=== PATIENT | male | born 1975 | race Two or more races ===

== ENCOUNTER → 2022-07-12 | Outpatient (CLI) | payer OTHER, BC ==
--- NOTE | 2022-07-12 13:58 | XR ---
EXAMINATION TYPE: XR abdomen 2V DATE OF EXAM: 07/12/2022 CLINICAL DATA: 46-year-old male R109, [facility] COMPARISON: None FINDINGS: Lung bases are clear. No evidence for free intraperitoneal air. Minimal stool within the right side of the colon. Otherwise, only minimal bowel gas present. Possible hepatomegaly. Ultrasound can be considered if clinically indicated. No dilated small bowel or air-fluid levels. Phleboliths in the pelvis. No suspicious calcifications seen. IMPRESSION: 1. No evidence for free air or bowel obstruction. Only minimal stool in the right side of the colon. 2. Possible hepatomegaly. If clinically indicated, liver ultrasound can be performed.
[2022-07-12 14:23] LABS: Basophils # (A) 0.09 X 10*3/uL (0.00-0.10); Basophils % (A) 0.8 %; Eosinophils # (A) 0.39 X 10*3/uL (0.04-0.35); Eosinophils % (A) 3.3 %; HCT 49.7 % (39.6-50.0); HGB 16.4 g/dL (13.0-17.0); Immature Grans, Automated 0.5 %; Lymphocytes % (A) 17.9 %; MCH 29.2 pg (27.0-32.0); MCV 88.6 fL (80.0-97.0); Mean Platelet Volume 11.2 fL (9.5-12.2); Monocytes # (A) 0.82 X 10*3/uL (0.20-1.00); NRBC Per 100 WBC 0 /100 WBCS (0.0-0.0); Neutrophils # (A) 8.26 X 10*3/uL (1.80-7.70); Neutrophils % (A) 70.5 %; Platelet Count 218 X 10*3/uL (140-440); RBC 5.61 X 10*6/uL (4.40-5.60); RDW 12.5 % (11.5-14.5); WBC 11.72 X 10*3/uL (4.50-10.00)
[2022-07-12 14:50] LABS: African American GFR (CKD) 87.3 (60.0-200.0); Albumin 4.3 g/dL (3.8-4.9); Albumin/Globulin Ratio 2.07 (1.60-3.17); Anion Gap 10.1 mmol/L (10.00-18.00); BUN/Creat Ratio 9.04 Ratio (12.00-20.00); Blood Urea Nitrogen 10.4 mg/dL (9.0-27.0); Calcium 9.4 mg/dL (8.7-10.3); Carbon Dioxide 29.2 mmol/L (20.0-27.5); Globulin 2.1 g/dL (1.6-3.3); Non-African American GFR(CKD) 75.4 (60.0-200.0); Potassium 4.5 mmol/L (3.5-5.5); Total Bilirubin 0.4 mg/dL (0.30-1.20); Total Protein 6.4 g/dL (6.2-8.2)
== END | disposition home or self-care (01) ==
LOC: LABWHC1 10:29
PROVIDERS: ATTEND Physician Assistant
DX: R10.9 Unspecified abdominal pain (principal)
CPT/HCPCS: 36415; 74019; 80053; 82150; 83690; 85025

== ENCOUNTER → 2022-07-13 | Outpatient (CLI) | payer OTHER, BC ==
--- NOTE | 2022-07-13 11:46 | US ---
EXAMINATION TYPE: US abdomen complete DATE OF EXAM: 07/13/2022 COMPARISON: NONE CLINICAL HISTORY: R10.9 ABDOMEN PAIN. TECHNIQUE: Multiple sonographic images of the abdomen are obtained. FINDINGS: EXAM MEASUREMENTS: Liver Length: 18.1 cm Gallbladder Wall: 0.11 cm CBD: 0.19 cm Spleen: 11.8 cm Right Kidney: 10.5 x 4.8 x 5.9 cm Left Kidney: 11.7 x 5.7 x 5.5 cm Pancreas: Tail obscured by overlying bowel gas Liver: Increased attenuation. Enlarged right lobe vs Reidel's variant. Gallbladder: wnl Evidence for sonographic Rossi's sign: No CBD: wnl Spleen: wnl Right Kidney: wnl Left Kidney: wnl Upper IVC: wnl Abd Aorta: wnl The liver is homogenous. The intrahepatic portion of the IVC and proximal abdominal aorta are within normal limits. There is no evidence of cholelithiasis. Common bile duct is unremarkable. The visu alized portions of the pancreas are homogenous. The spleen is unremarkable. Kidneys are symmetric a nd free of hydronephrosis. No renal lesions are seen. IMPRESSION: Probable Leesa's lobe.
== END | disposition home or self-care (01) ==
LOC: RADUSWWP 10:51
PROVIDERS: ATTEND Family Medicine
DX: R10.9 Unspecified abdominal pain (principal)
CPT/HCPCS: 76700

== ENCOUNTER → 2022-09-25 | Outpatient (CLI) | payer OTHER, BC ==
--- NOTE | 2022-09-25 10:56 | FL ---
EXAMINATION TYPE: FL UGI air w small bowel DATE OF EXAM: 09/25/2022 10:20 AM COMPARISON: NONE CLINICAL HISTORY: HX OF DIARRHEA AND CONSTIPATION RT SIDE ABDOMINAL PAIN A total of 80 seconds of fluoroscopic time was utilized during procedure and 22 images obtained. Preliminary view of the abdomen reveals a normal bowel gas pattern. Mild degenerative changes are not ed of the thoracolumbar spine. Upper GI examination was performed according to the air contrast techn ique. Barium and effervescent crystal was swallowed without difficulty or delay. Esophageal perista lsis and motility are within normal limits. There is no evidence for esophagitis, intraluminal mass, hiatal hernia or gastroesophageal reflux. The stomach has a normal appearance in terms of its size, shape and location. No gastric filling defects or ulcer craters are seen. The duodenal bulb and sw eep are also free of intraluminal lesion or ulcer crater. IMPRESSION: Unremarkable evaluation.
[2022-09-25 13:03] LABS: Appearance,Urine Clear (Clear); Bilirubin,Urine Negative (Negative); Blood,Urine Negative (Negative); Color,Urine Yellow; Glucose,Urine (UA) Negative (Negative); Ketones,Urine Negative (Negative); Leukocyte Esterase,Urine Negative (Negative); Nitrite,Urine Negative (Negative); Protein,Urine Trace (Negative); Specific Gravity,Urine 1.028 (1.001-1.035); Urobilinogen,Urine <2.0 mg/dL (<2.0)
== END | disposition home or self-care (01) ==
LOC: RADFLMAIN 08:45
PROVIDERS: ATTEND Family Medicine
DX: Z00.00 Encounter for general adult medical examination without abnormal findings (principal); R10.9 Unspecified abdominal pain; E66.3 Overweight; F52.21 Male erectile disorder
CPT/HCPCS: 74240; 74248; 81003; 82040; 82306; 83036; 84153; 84270; 84403; 84443

== ENCOUNTER → 2022-10-11 | Outpatient (CLI) | payer OTHER, BC ==
--- NOTE | 2022-10-11 15:53 | NM ---
EXAMINATION TYPE: NM hepatobiliary w EF DATE OF EXAM: 10/11/2022 COMPARISON: Ultrasound 07/13/2022 CLINICAL INDICATION: Male, 46 years old with history of R10.9 abdominal pain; TECHNIQUE: After the intravenous administration of 4.3 mCi Tc 99m Mebrofenin hepatobiliary scintigrap hy is performed. Immediate images post injection. FINDINGS: There is satisfactory initial accumulation of tracer by the liver. The gallbladder is visualized wit hin 6 minutes. The small bowel activity is noted within 8 minutes. At one hour 8 ounces of oral ens ure plus is given to mimic CCK and gallbladder ejection fraction is calculated at 68 %, in the normal range. Therefore there is no scintigraphic evidence of cystic or common bile duct obstruction to feng ggest acute cholecystitis or gallbladder dyskinesia. IMPRESSION: Exam is within normal limits.
== END | disposition home or self-care (01) ==
LOC: RADNMMAIN 06:48
PROVIDERS: ATTEND Family Medicine
DX: R10.9 Unspecified abdominal pain (principal)
CPT/HCPCS: 78226; A9537

== ENCOUNTER 2023-06-19 06:07 | Inpatient (IN) | payer OTHER, BC ==
--- NOTE | 2023-06-19 06:18 | ED ---
Chest Pain HPI - General Source: patient Mode of arrival: ambulatory Limitations: no limitations <Carlos Alberto Irvin - Last Filed: 06/19/23 06:16> - General Source: RN notes reviewed, old records reviewed <Jose Bowie - Last Filed: 06/19/23 06:30> - General Chief Complaint: Chest Pain Stated Complaint: chest pain Time Seen by Provider: 06/19/23 06:15 - History of Present Illness Initial Comments: 47-year-old male with past medical history of asthma presenting with central chest pain radiating to bilateral arms associated diaphoresis. Patient symptoms began just prior to arrival. has no prior cardiac history. (Jose Bowie) - Related Data Home Medications Medication Instructions Recorded Confirmed No Known Home Medications 02/24/14 02/24/14 Allergies Allergy/AdvReac Type Severity Reaction Status Date / Time No Known Allergies Allergy Verified 02/24/14 22:12 Review of Systems ROS Other: All systems not noted in ROS Statement are negative. <Carlos Alberto Irvin - Last Filed: 06/19/23 06:16> ROS Other: All systems not noted in ROS Statement are negative. <Jose Bowie - Last Filed: 06/19/23 06:30> ROS Statement: Those systems with pertinent positive or pertinent negative responses have been documented in the HPI. Past Medical History Past Medical History: Asthma History of Any Multi-Drug Resistant Organisms: None Reported Past Surgical History: No Surgical Hx Reported Past Psychological History: No Psychological Hx Reported Smoking Status: Current every day smoker Past Alcohol Use History: None Reported Past Drug Use History: None Reported <Carlos Alberto Irvin - Last Filed: 06/19/23 06:16> General Exam Limitations: no limitations <Carlos Alberto Irvin - Last Filed: 06/19/23 06:16> General appearance: alert, in no apparent distress Head exam: Present: atraumatic, normocephalic Eye exam: Present: normal appearance, PERRL Neck exam: Present: normal inspection. Absent: tenderness, meningismus Respiratory exam: Present: normal lung sounds bilaterally. Absent: respiratory distress Cardiovascular Exam: Present: regular rate, normal rhythm GI/Abdominal exam: Present: soft. Absent: distended, tenderness, guarding Extremities exam: Present: normal inspection, normal capillary refill Neurological exam: Present: alert Skin exam: Present: diaphoretic <Jose Bowie N - Last Filed: 06/19/23 06:30> Course Vital Signs 06/19/23 06:11 Temperature 97.7 F Pulse Rate 48 L Respiratory 18 Rate Blood Pressure 123/82 O2 Sat by Pulse 98 Oximetry Chest Pain MDM <Jose Bowie - Last Filed: 06/19/23 06:30> - MDM Was pt. sent in by a medical professional or institution (, PA, BANK TELLER MACHINE MECHANIC, urgent care, hospital, or custodial...) When possible be specific @ -No Did you speak to anyone other than the patient for history (EMS, parent, family, police, friend...)? What history was obtained from this source @ -No Did you review nursing and triage notes (agree or disagree)? Why? @ -I reviewed and agree with nursing and triage notes Were old charts reviewed (outside hosp., previous admission, EMS record, old EKG, old radiological studies, urgent care reports/EKG's, custodial records)? Report findings @ -No old charts were reviewed Differential Diagnosis (chest pain, altered mental status, abdominal pain women, abdominal pain men, vaginal bleeding, weakness, fever, dyspnea, syncope, headache, dizziness, GI bleed, back pain, seizure, CVA, palpatations, mental health, musculoskeletal)? @Differential Chest Pain: Stable Angina, Unstable Angina, STEMI, NSTEMI Aortic Dissection, Pneumothorax, Musculoskeletal, Esophageal Spasm GERD, Cholecystitis, Pancreatitis, Zoster, this is not meant to be an all-inclusive list. EKG interpreted by me (3pts min.). @ -ST segment elevated OR, inferior OR rate of 51, NE interval 143, QRS duration 109, QTc 390, inferior elevation with reciprocal change in aVL. X-rays interpreted by me (1pt min.). @ -[Chest x-ray pending. CT interpreted by me (1pt min.). @ -None done U/S interpreted by me (1pt. min.). @ -None done What testing was considered but not performed or refused? (CT, X-rays, U/S, labs)? Why? @ -None What meds were considered but not given or refused? Why? @ -None Did you discuss the management of the patient with other professionals (professionals i.e. , PA, BANK TELLER MACHINE MECHANIC, lab, RT, psych nurse, social insurance adviser, sheet metal smith, teacher, staff weapons officer, showcase trimmer)? Give summary @ -Dr. Guzman, Dr. Bourgeois Was smokiNong cessation discussed for >3mins.? @ -No Was critical care preformed (if so, how long)? @ -yes, 35 minutes Were there social determinants of health that impacted care today? How? (Homelessness, low income, unemployed, alcoholism, drug addiction, transportation, low edu. Level, literacy, decrease access to med. care, prison, rehab)? @ -No Was there de-escalation of care discussed even if they declined (Discuss DNR or withdrawal of care, Hospice)? DNR status @ -No What co-morbidities impacted this encounter? (DM, HTN, Smoking, COPD, CAD, Cancer, CVA, ARF, Chemo, Hep., AIDS, mental health diagnosis, sleep apnea, morbid obesity)? @ -None Was patient admitted / discharged? Hospital course, mention meds given and route, prescriptions, significant lab abnormalities, going to OR and other pertinent info. @ -[Acute OR, patient admitted, taken immediately to the [facility], given aspirin, Lipitor, and heparin in the emergency department. Undiagnosed new problem with uncertain prognosis? @ -No Drug Therapy requiring intensive monitoring for toxicity (Heparin, Nitro, Insulin, Cardizem)? @ -No Were any procedures done? @ -No Diagnosis/symptom? @ -Acute OR, ST segment elevated OR Acute, or Chronic, or Acute on Chronic? @ -[Acute Uncomplicated (without systemic symptoms) or Complicated (systemic symptoms)? @ -Complicated Side effects of treatment? @ -[No Exacerbation, Progression, or Severe Exacerbation? @ -No Poses a threat to life or bodily function? How? (Chest pain, USA, OR, pneumonia, PE, COPD, DKA, ARF, appy, cholecystitis, CVA, Diverticulitis, Homicidal, Suicidal, threat to staff... and all critical care pts) @ -Yes, STEMI (Jose Bowie) Critical Care Time Critical Care Time: Yes Total Critical Care Time: 35 <Jose Bowie - Last Filed: 06/19/23 06:30> Disposition <Carlos Alberto Irvin - Last Filed: 06/19/23 06:16> Is patient prescribed a controlled substance at d/c from ED?: No Time of Disposition: 06:30 <Jose Bowie - Last Filed: 06/19/23 06:30> Clinical Impression: ST elevation myocardial infarction (STEMI) Disposition: ADMITTED IP TO THIS HOSP Condition: Serious Referrals: Rubin Blanco DO [Primary Care Provider] - 1-2 days
[2023-06-19] MEDS ORDERED: NALOXONE 0.4 MG/ML 1 ML VIAL IV PRN (06:25)
[2023-06-19] MEDS: ASPIRIN 81 MG PO STA (06:25)
[2023-06-19] MEDS: HEPARIN SODIUM 1,000 UN/ML (10ML VL) IV ONE ×2 (06:26→06:50)
[2023-06-19] MEDS: ATORVASTATIN 80 MG TAB PO STA (06:29)
[2023-06-19] MEDS ORDERED: VERAPAMIL 2.5 MG/ML 2 ML AMP ONE (06:32)
[2023-06-19] MEDS ORDERED: LIDOCAINE 1% INJ 10MG/ML (20 ML MDV) ONE (06:32)
[2023-06-19] MEDS ORDERED: fentaNYL (PF) 50 MCG/ML 2 ML AMP ONE (06:41)
[2023-06-19] MEDS ORDERED: HEPARIN SODIUM 1,000 UN/ML (10ML VL) ONE (06:41)
[2023-06-19] MEDS: fentaNYL (PF) 50 MCG/1 ML VIAL IVP ONE (06:42)
[2023-06-19] MEDS: SODIUM CHLORIDE 0.9% 1,000 ML IV ONE (06:42)
[2023-06-19 06:46] LABS: Basophils # (A) 0.1 k/uL (0-0.2); Basophils % (A) 1 %; Eosinophils # (A) 0.5 k/uL (0-0.7); Eosinophils % (A) 5 %; HCT 48.7 % (39.0-53.0); HGB 16.6 gm/dL (13.0-17.5); Lymphocytes % (A) 28 %; MCH 29.6 pg (25.0-35.0); MCHC 34.2 g/dL (31.0-37.0); MCV 86.7 fL (80.0-100.0); Mean Platelet Volume 8.3; Monocytes # (A) 0.6 k/uL (0-1.0); Monocytes % (A) 6 %; Neutrophils # (A) 6.3 k/uL (1.3-7.7); Neutrophils % (A) 59 %; Platelet Count 223 k/uL (150-450); RBC 5.62 m/uL (4.30-5.90); RDW 12.4 % (11.5-15.5); WBC 10.7 k/uL (3.8-10.6)
[2023-06-19] MEDS: LIDOCAINE 1% INJ 10MG/ML (20 ML MDV) SQ ONE (06:46)
[2023-06-19] MEDS: VERAPAMIL SYRINGE (5 MG/10 ML) INTRAARTER ONE (06:49)
[2023-06-19] MEDS ORDERED: PRASUGREL 10 MG TAB ONE (06:50)
[2023-06-19] MEDS: PRASUGREL 10 MG TAB PO ONE (06:52)
[2023-06-19 06:54] LABS: ALT 31 U/L (4-49); AST 35 U/L (17-59); African American GFR (CKD) >90 (>60 ml/min/1.73 sqM); Albumin 3.9 g/dL (3.5-5.0); Alkaline Phosphatase 68 U/L (38-126); Anion Gap 7 mmol/L; Blood Urea Nitrogen 15 mg/dL (9-20); Calcium 8.8 mg/dL (8.4-10.2); Carbon Dioxide 25 mmol/L (22-30); Chloride 106 mmol/L (98-107); Glucose 190 mg/dL (74-99); Magnesium 1.9 mg/dL (1.6-2.3); Non-African American GFR(CKD) 80 (>60 ml/min/1.73 sqM); Partial Thromboplastin Time 22.1 sec (22.0-30.0); Potassium 4.3 mmol/L (3.5-5.1); Prothrombin Time 10.7 sec (10.0-12.5); Sodium 138 mmol/L (137-145); Total Bilirubin 0.8 mg/dL (0.2-1.3); Total Protein 6.6 g/dL (6.3-8.2)
[2023-06-19] MEDS ORDERED: METOPROLOL TARTRATE 5 MG/5 ML VIAL IVP ONE (07:01)
[2023-06-19] MEDS: METOPROLOL TARTRATE 5 MG/5 ML VIAL IVP ONE (07:04)
[2023-06-19] MEDS: IOPAMIDOL-370 100ML BTL INJ ONE ×3 (07:06→07:36)
--- NOTE | 2023-06-19 07:08 | P.HPCAR ---
History of Present Illness This is Dr. Guzman dictating a consult on this patient The patient was interviewed and examined IMPRESSION / ASSESSMENT: Acute inferior wall ME ST elevation in leads II, III, aVF and involving 4 to V6, ST depression in lead I and particularly in aVL History of asthma PLAN: Urgent coronary angiogram and intervention for acute inferior wall ME HPI Patient presented with central chest discomfort radiating to both arms associate with diaphoresis The pain began shortly before arrival No prior cardiac history No home medications Seen by Dr. Burns who then proceeded with coronary angiography transferred to ROS: No fever chills or rigors, no cough, phlegm or expectoration, no nausea, vomiting or diarrhea, no hematuria, dysuria, no musculoskeletal complaints, no strokes or seizures, no skin lesions. EXAMINATION: Pulse rate in the 50s, blood pressure 123/82 afebrile REVIEW OF LABS, ECG & MEDICAL DATA No known Home medications White count 10.7 thousand, hemoglobin 16 Potassium 4.3, sodium 138 Normal renal function, elevated glucose of 190 AST and ALT normal Physical Exam Vitals: Vital Signs Temp Pulse Resp BP Pulse Ox 06/19/23 06:47 98.5 F 56 L 18 130/97 98 06/19/23 06:41 98.2 F 56 L 18 130/97 98 06/19/23 06:11 97.7 F 48 L 18 123/82 98 Intake and Output 06/18/23 06/19/23 06/19/23 22:59 06:59 14:59 Other: Weight 111.13 kg Past Medical History Past Medical History: Asthma History of Any Multi-Drug Resistant Organisms: None Reported Past Surgical History: No Surgical Hx Reported Past Psychological History: No Psychological Hx Reported Smoking Status: Current every day smoker Past Alcohol Use History: None Reported Past Drug Use History: None Reported Physical Examination Vital Signs Temp Pulse Resp BP Pulse Ox 06/19/23 06:47 98.5 F 56 L 18 130/97 98 06/19/23 06:41 98.2 F 56 L 18 130/97 98 06/19/23 06:11 97.7 F 48 L 18 123/82 98 Intake and Output 06/18/23 06/19/23 06/19/23 22:59 06:59 14:59 Other: Weight 111.13 kg Results 06/19/23 06:26 06/19/23 06:26 Cardiac Enzymes 06/19/23 Range/Units 06:26 AST 35 (17-59) U/L Coagulation 06/19/23 Range/Units 06:26 PT 10.7 (10.0-12.5) sec APTT 22.1 (22.0-30.0) sec CBC 06/19/23 Range/Units 06:26 WBC 10.7 H (3.8-10.6) k/uL RBC 5.62 (4.30-5.90) m/uL Hgb 16.6 (13.0-17.5) gm/dL Hct 48.7 (39.0-53.0) % Plt Count 223 (150-450) k/uL Comprehensive Metabolic Panel 06/19/23 Range/Units 06:26 Sodium 138 (137-145) mmol/L Potassium 4.3 (3.5-5.1) mmol/L Chloride 106 (98-107) mmol/L Carbon Dioxide 25 (22-30) mmol/L BUN 15 (9-20) mg/dL Creatinine 1.09 (0.66-1.25) mg/dL Glucose 190 H (74-99) mg/dL Calcium 8.8 (8.4-10.2) mg/dL AST 35 (17-59) U/L ALT 31 (4-49) U/L Alkaline Phosphatase 68 (38-126) U/L Total Protein 6.6 (6.3-8.2) g/dL Albumin 3.9 (3.5-5.0) g/dL Current Medications Generic Name Dose Route Start Last Admin Trade Name Freq PRN Reason Stop Dose Admin Naloxone HCl 0.2 mg 06/19/23 06:25 Naloxone 0.4 Mg/Ml 1 Ml Vial IV Q2M PRN Opioid Reversal Intake and Output 06/18/23 06/19/23 06/19/23 22:59 06:59 14:59 Other: Weight 111.13 kg 06/19/23 06:26 06/19/23 06:26
[2023-06-19] MEDS ORDERED: NITROGLYCERIN SL TABS 0.4 MG TAB SUBLINGUAL PRN (07:50)
[2023-06-19] MEDS ORDERED: ATROPINE SULFATE 0.1 MG/ML 10ML SYRINGE IV PRN (07:50)
[2023-06-19] MEDS ORDERED: RX INFO: IV CONTRAST WAS GIVEN 1 EACH MISC MISCELLANE PRN (07:50)
[2023-06-19] MEDS ORDERED: MAG HYDROX/AL HYDROX/SIMETH 30 ML CUP PO PRN (07:50)
[2023-06-19] MEDS ORDERED: ZOLPIDEM 5 MG TAB PO PRN (07:50)
--- NOTE | 2023-06-19 07:56 | XR ---
EXAMINATION TYPE: XR chest 1V portable DATE OF EXAM: 06/19/2023 COMPARISON: 03/03/2012 INDICATION: Chest pain TECHNIQUE: Single frontal view of the chest is obtained. FINDINGS: The heart size is normal. The pulmonary vasculature is normal. The lungs are clear. IMPRESSION: 1. No acute pulmonary process.
--- NOTE | 2023-06-19 07:56 | P.CRDCN ---
History of Present Illness Consult date: 06/19/23 History of present illness: History of Present Illness: The patient is a 47-year-old male with a known history of chronic tobacco use, bronchial asthma who presented to the emergency room with an acute episode of chest discomfort without any associated symptoms. He had no prior history of similar symptoms and no history of cardiac disease. He denies any history of P ND, orthopnea or peripheral edema. He denies any dizziness, palpitations or syncope. In the emergency room he was found to have ST elevation inferiorly consistent with an acute inferior wall myocardial infarction. His troponin was 0.48. The patient is relatively active physically and has no history of exertional chest discomfort or significant dyspnea on exertion. He has no history of hypertension, hyperlipidemia or diabetes. Medications: None Review of Systems: Respiratory: No history of asthma, bronchitis or recent cough. GI: No nausea or vomiting . No history of peptic ulcer disease. No recent GI bleed. : No hematuria or dysuria. Nervous System: No stroke or seizure. Physical Examination: 47-year-old male, alert oriented no apparent distress,Blood pressure 120/70, Heart rate 60 Head: Normocephalic. Eyes: Sclerae nonicteric. Neck: Good carotid upstroke, no bruit, no jugular venous distention. Lungs: Clear to auscultation. Heart: Regular rate and rhythm, S1-S2, no S3, no rub. No murmur. Abdomen: Soft nontender, positive bowel sounds no organomegaly. Extremities: No edema, intact distal pulses. Labs: Hemoglobin 16.6, platelets 223, BUN 15, creatinine 1.09. EKG: EKG with sinus mechanism and ST segment elevation inferiorly Impression: 1. Acute inferior wall STEMI 2. Chronic tobacco use Plan: 1. Proceed with emergent cardiac catheterization, the risks and the comp lications were discussed with the patient 2. Smoking cessation 3. Obtain an echocardiogram with Doppler 4. Depending on the results of the testing further recommendations will be made 5. Thank you for this consult we will follow with you Past Medical History Past Medical History: Asthma History of Any Multi-Drug Resistant Organisms: None Reported Past Surgical History: No Surgical Hx Reported Past Psychological History: No Psychological Hx Reported Smoking Status: Current every day smoker Past Alcohol Use History: None Reported Past Drug Use History: None Reported Medications and Allergies Home Medications Medication Instructions Recorded Confirmed Type No Known Home Medications 02/24/14 02/24/14 History Allergies Allergy/AdvReac Type Severity Reaction Status Date / Time No Known Allergies Allergy Verified 02/24/14 22:12 Physical Exam Vitals: Vital Signs Temp Pulse Resp BP Pulse Ox 06/19/23 06:47 98.5 F 56 L 18 130/97 98 06/19/23 06:41 98.2 F 56 L 18 130/97 98 06/19/23 06:11 97.7 F 48 L 18 123/82 98 Intake and Output 06/18/23 06/19/23 06/19/23 22:59 06:59 14:59 Intake Total 50 Balance 50 Intake: IV 50 Other: Weight 111.13 kg Results 06/19/23 06:26 06/19/23 06:26 Cardiac Enzymes 06/19/23 06/19/23 Range/Units 06:26 06:26 AST 35 (17-59) U/L Troponin I 0.048 H* (0.000-0.034) ng/mL Coagulation 06/19/23 Range/Units 06:26 PT 10.7 (10.0-12.5) sec APTT 22.1 (22.0-30.0) sec CBC 06/19/23 Range/Units 06:26 WBC 10.7 H (3.8-10.6) k/uL RBC 5.62 (4.30-5.90) m/uL Hgb 16.6 (13.0-17.5) gm/dL Hct 48.7 (39.0-53.0) % Plt Count 223 (150-450) k/uL Comprehensive Metabolic Panel 06/19/23 Range/Units 06:26 Sodium 138 (137-145) mmol/L Potassium 4.3 (3.5-5.1) mmol/L Chloride 106 (98-107) mmol/L Carbon Dioxide 25 (22-30) mmol/L BUN 15 (9-20) mg/dL Creatinine 1.09 (0.66-1.25) mg/dL Glucose 190 H (74-99) mg/dL Calcium 8.8 (8.4-10.2) mg/dL AST 35 (17-59) U/L ALT 31 (4-49) U/L Alkaline Phosphatase 68 (38-126) U/L Total Protein 6.6 (6.3-8.2) g/dL Albumin 3.9 (3.5-5.0) g/dL Current Medications Generic Name Dose Route Start Last Admin Trade Name Freq PRN Reason Stop Dose Admin Al Hydroxide/Mg Hydroxide 30 ml 06/19/23 07:50 Mag Hydrox/Al Hydrox/Simeth 30 Ml Cup PO Q4HR PRN Heartburn Aspirin 81 mg 06/19/23 09:00 Aspirin 81 Mg PO DAILY [facility] Atorvastatin Calcium 80 mg 06/19/23 21:00 Atorvastatin 80 Mg Tab PO HS [facility] Atropine Sulfate 0.5 mg 06/19/23 07:50 Atropine Sulfate 0.1 Mg/Ml 10ml Syringe IV ONCE PRN Symptomatic Bradycardia Sodium Chloride 1,000 ml/ IV 1,000 mls @ 111.13 mls/hr 06/19/23 08:00 Solution IV 06/19/23 11:01 .Q9H GORGE 1 ML/KG/HR Metoprolol Tartrate 25 mg 06/19/23 09:00 Metoprolol Tartrate 25 Mg Tab PO BID [facility] Miscellaneous Information 1 each 06/19/23 07:50 Rx Info: Iv Contrast Was Given 1 Each Misc MISCELLANE 06/21/23 07:50 DAILY PRN Per Protocol Naloxone HCl 0.2 mg 06/19/23 06:25 Naloxone 0.4 Mg/Ml 1 Ml Vial IV Q2M PRN Opioid Reversal Nitroglycerin 0.4 mg 06/19/23 07:50 Nitroglycerin Sl Tabs 0.4 Mg Tab SUBLINGUAL Q5M PRN Chest Pain Prasugrel 10 mg 06/20/23 09:00 Prasugrel 10 Mg Tab PO DAILY [facility] Protocol Spironolactone 25 mg 06/19/23 09:00 Spironolactone 25 Mg Tab PO DAILY [facility] Zolpidem Tartrate 5 mg 06/19/23 07:50 Zolpidem 5 Mg Tab PO HS PRN Insomnia Intake and Output 06/18/23 06/19/23 06/19/23 22:59 06:59 14:59 Intake Total 50 Balance 50 Intake: IV 50 Other: Weight 111.13 kg 06/19/23 06:26 06/19/23 06:26
[2023-06-19 08:00] LABS: Glucose,Whole Blood 161 mg/dL (70-110)
[2023-06-19] MEDS: SODIUM CHLORIDE 0.9% 1,000 ML in EMPTY BAG 1 BAG IV SCH (08:00)
--- NOTE | 2023-06-19 08:02 | P.CARDCATH ---
Date of Procedure: 06/19/23 Description of Procedure: Cardiac Catheterization: The patient is a 47-year-old male who presented with an acute inferior wall myocardial infarction. Recommendations were made regarding cardiac catheterization, the risks and the complications were discussed with the patient who is in full understanding and agreement. Procedure Description: Patient was brought to dock or pier laborer in fasting semi-sedated state after receiving Fentanyl and Benadryl achieiving moderate conscious sedated state. Using Xylocaine Anesthesia and modified Seldinger technique, a 6-Malian sheath was introduced in the right radial artery . Subsequently, selective coronary angiography was performed using a 6 Malian FFR 4 guiding catheter and 5-Malian 3.5 bend left Jannet catheter. Multiple views of the coronary artery including hemiaxial views were obtained. The left Jannet catheter was used to cross the aortic valve and LVEDP was calculated. PCI: After obtaining images of the right coronary artery a 0.014 BMW J-wire was positioned distally and a 2.5 x 12 mm trek balloon was advanced and 2 inflation at 8 flaco were done. Subsequently a penumbra catheter was introduced and thrombectomy was performed with removal of thrombus. After removing the catheter a listedplaces eye IVUS catheter was introduced and images were obt ained. Subsequently a 3.5 x 18 mm Xience qasim point stent was advanced and deployed at 16 flaco. Subsequently a 4.5 x 8 mm NC trek balloon was advanced to the distal RCA and 1 inflation at 10 flaco was done. Repeat IVUS was performed and after removing the catheter a 5.0 x 8 mm NC trek balloon was advanced to the distal RCA and 1 inflation at 8 flaco was done. After removing the wire images were obtained and revealed stable successful stenting. Images of the left system were performed and repeat images of the right coronary artery was performed. Following that, catheter and sheath were removed. Hemostasis was obtained with deployment of vascular band . There was no immediate complication. Patient was returned to room in stable condition. Of note, the patient received a total of 5000 units of intravenous heparin as well as intra-arterial verapamil. The patient received an oral loading dose of Effient, his ACT was followed. At the end of the procedure his chest discomfort resolved and his EKG changes improved. There was no immediate complications. Findings: Left main: This is a large size vessel, bifurcating into LAD and left circumflex, left main has no obstructive disease. LAD: This is a large size vessel, reaching to the apex with a wraparound apex segment giving rise to a large diagonal branch. The LAD and its branches have no obstructive disease Left circumflex: This is a non-dominant vessel giving rise to 2 obtuse marginal branch that have no evidence of obstructive disease RCA: This is a large size vessel bifurcating distally to PDA and PLV at the distal segment there is 99% stenosis with evidence of intra coronary thrombus and slow flow into the PLV Left Ventriculogram: Not performed Hemodynamics: There was no gradient across aortic valve, LVEDP was 25-30 mmHg Conclusion: 1. 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 No evidence of obstructive disease in the LAD and left circumflex 3. Successful stenting of the distal right coronary artery and proximal PLV with reduction of stenosis from 99% to less than 5% with IVUS imaging 4. Elevated left ventricular end-diastolic pressure Recommendations: The patient will continue on aspirin and Effient without any interruption for 1 year without any interruption in addition to aggressive coronary risks modifications, maintaining LDL to less then 50 mg/dL and smoking cessation. The findings and the recommendations were discussed with the patient and the family and they were in full understanding and agreement. Duration of sedation is 54 minutes.
[2023-06-19] MEDS: SPIRONOLACTONE 25 MG TAB PO SCH (09:30)
[2023-06-19 10:30] VITALS: BMI 31.4
[2023-06-19] MEDS ORDERED: ONDANSETRON 4 MG/2 ML VIAL IVP PRN (11:27)
[2023-06-19] MEDS ORDERED: LACTULOSE 20 GM/30 ML CUP PO PRN (11:27)
[2023-06-19] MEDS ORDERED: MELATONIN 3 MG TABLET PO PRN (11:27)
[2023-06-19] MEDS ORDERED: LORazepam 0.5 MG TAB PO PRN (11:27)
[2023-06-19] MEDS: METOPROLOL TARTRATE 25 MG TAB PO SCH (11:35)
[2023-06-19] MEDS: NICOTINE 21MG/24HR PATCH TRANSDERM SCH (11:35)
[2023-06-19] MEDS: ACETAMINOPHEN TAB 325 MG TAB PO PRN (11:40)
[2023-06-19] MEDS ORDERED: DEXTROSE 50% SYRINGE 50 ML IVP PRN ×2 (14:24)
--- NOTE | 2023-06-19 14:25 | P.HPIM ---
History of Present Illness H&P Date: 06/19/23 Chief Complaint: Chest pain This is a pleasant 47-year-old patient who follows Dr. Blanco. Longstanding smoker. Has asthma with rescue inhaler. This morning he woke up feeling unwell. 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 Started developing central chest pressure going to the back. No dizziness no lightheadedness. Break out in a sweat and clammy. Decided come to the ER. Time elapsed was about 90 minutes. ER patient found to be in ST elevation acute myocardial infarction. Taken to the cardiac Associate Research Scientist. Patient was discovered to have a subtotally occluded dis rhianna RCA with intracoronary thrombus. Stenting of the same was carried out. Postprocedure patient laying in bed in the ICU. Patient's and mother at the bedside. 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 Smoking a pack a day for close to 30 years. Alcohol occasionally. . Physical examination: VITAL SIGNS: Afebrile, 65, 18, 124/90, 97% room air GENERAL: BMI 31.1, reclining bed awake not in distress. EYES: Pupils equal. Conjunctiva shabnam l. HEENT: External appearance of nose and ears normal, oral cavity grossly normal. NECK: JVD not raised; masses not palpable. HEART: First and second heart sounds are normal; no edema. LUNGS: Respiratory rate normal; clear to auscultation. ABDOMEN: Soft, nontender, liver spleen not palpable, no masses palpable. PSYCH: Alert and oriented x3; mood and affect shabnam l. MUSCULOSKELETAL:No Clubbing/cyanosis;muscles-grossly intact NEUROLOGICAL: Cranial nerves grossly intact; no facial asymmetry, power and sensation grossly intact. LYMPHATICS: No lymph nodes palpable in the axilla and neck INVESTIGATIONS, reviewed in the clinical context: June 19: White count 10.7 hemoglobin 16.6 platelets 223 potassium 4.3 c reatinine 1.09 Troponin I 0.048 EKG tracing personally reviewed by me-ST elevation in inferior leads and reciprocal changes in the opposite leads Assessment and plan: -Acute inferior wall ST elevation [place] Patient has stent placed to the RCA., By Dr. Burns Aspirin. Lipitor. Lopressor. Effient. -Chronic nicotine dependence, cigarette smoking Counseled. Nicotine patch -Obesity BMI 31.5 Weight loss measures -COPD and a current smoker Albuterol as needed insulin -Hyperglycemia. Check HbA1c. Accu-Cheks with sliding scale insulin Care was discussed with the patient his mother and at the bedside. Questions answered. Past Medical History Past Medical History: Asthma History of Any Multi-Drug Resistant Organisms: None Reported Past Surgical History: No Surgical Hx Reported Smoking Status: Current every day smoker Medications and Allergies Home Medications Medication Instructions Recorded Confirmed Type No Known Home Medications 02/24/14 06/19/23 History Allergies Allergy/AdvReac Type Severity Reaction Status Date / Time No Known Allergies Allergy Verified 06/19/23 08:33 Physical Exam Vitals: Vital Signs Temp Pulse Resp BP Pulse Ox 06/19/23 08:15 67 17 138/90 96 06/19/23 08:00 97.7 F 63 16 138/96 98 06/19/23 06:47 98.5 F 56 L 18 130/97 98 06/19/23 06:41 98.2 F 56 L 18 130/97 98 06/19/23 06:11 97.7 F 48 L 18 123/82 98 Intake and Output 06/18/23 06/19/23 06/19/23 22:59 06:59 14:59 Intake Total 50 211 Balance 50 211 Intake: IV 50 Intake, IV Titration 111 Amount Sodium Chloride 0.9% 1, 111 000 ml In Empty Bag 1 bag @ 1 ML/KG/HR 111.13 mls/ hr IV .Q9H [facility] Rx#: [id number] Oral 100 Other: Weight 111.13 kg 111.13 kg Results CBC & Chem 7: 06/19/23 06:26 06/19/23 06:26 Labs: Abnormal Lab Results - Last 24 Hours (Table) 06/19/23 06/19/23 06/19/23 Range/Units 06:26 06:26 06:26 WBC 10.7 H (3.8-10.6) k/uL Glucose 190 H (74-99) mg/dL POC Glucose (mg/dL) (70-110) mg/dL Troponin I 0.048 H* (0.000-0.034) ng/mL 06/19/23 Range/Units 07:57 WBC (3.8-10.6) k/uL Glucose (74-99) mg/dL POC Glucose (mg/dL) 161 H (70-110) mg/dL Troponin I (0.000-0.034) ng/mL
[2023-06-19] MEDS: INSULIN ASPART (NovoLOG) 100 UNIT/ML VIAL SQ SCH (14:59)
[2023-06-19 15:56] LABS: Chol/HDL Ratio 6.05 Ratio; LDL Cholesterol,Calculated 106.5 mg/dL (0.0-131.0)
[2023-06-19 16:33] LABS: Glucose,Whole Blood 156 mg/dL (70-110)
--- NOTE | 2023-06-19 17:02 | CA ---
Transthoracic Echo Report Name: Russell Zuniga Age: 47 Gender: M : 1975 Exam Date: 06/19/2023 09:36 Exam Location: [facility] Ht (in): 74 Wt (lb): 245 Ordering Physician: Van Burns MD ([id number]) Attending/Referring Phys: Compressor Station Engineer Chief Dania Fenton RDCS Procedure CPT: Indications: MS Cardiac Hx: Technical Quality: Good Contrast 1: Total Dose (mL): Contrast 2: Total Dose (mL): MEASUREMENTS (Male / Female) Normal Values 2D ECHO LV Diastolic Diameter PLAX 5.3 cm 4.2 - 5.9 / 3.9 - 5.3 cm LV Systolic Diameter PLAX 4.0 cm IVS Diastolic Thickness 1.1 cm 0.6 - 1.0 / 0.6 - 0.9 cm LVPW Diastolic Thickness 1.1 cm 0.6 - 1.0 / 0.6 - 0.9 cm LV Relative Wall Thickness 0.4 RV Internal Dim ED PLAX 3.5 cm LA Systolic Diameter LX 4.0 cm 3.0 - 4.0 / 2.7 - 3.8 cm LV Diastolic Volume MOD 4C 155.0 cm??? LV Systolic Volume MOD 4C 72.1 cm??? LV Ejection Fraction MOD 4C 53.5 % LV Cardiac Index MOD 4C 2110.0 cm???/min???m??? LV Diastolic Length 4C 8.9 cm LV Systolic Length 4C 7.0 cm LV Diastolic Volume MOD 2C 123.1 cm??? LV Systolic Volume MOD 2C 56.2 cm??? LV Ejection Fraction MOD 2C 54.4 % LV Cardiac Index MOD 2C 1704.7 cm???/min???m??? LV Diastolic Length 2C 8.9 cm LV Systolic Length 2C 7.1 cm LA Volume 58.9 cm??? 18 - 58 / 22 - 52 cm??? LA Volume Index 24.2 cm???/m??? 16 - 28 cm???/m??? M-MODE Aortic Root Diameter MM 3.6 cm MV E Point Septal Separation 0.3 cm AV Cusp Separation MM 2.5 cm DOPPLER AV Peak Velocity 123.2 cm/s AV Peak Gradient 6.1 mmHg MV Area PHT 3.7 cm??? Mitral E Point Velocity 82.3 cm/s Mitral A Point Velocity 56.3 cm/s Mitral E to A Ratio 1.5 MV Deceleration Time 206.6 ms TR Peak Velocity 247.2 cm/s TR Peak Gradient 24.4 mmHg Right Ventricular Systolic Press 28.9 mmHg FINDINGS Left Ventricle Left ventricular ejection fraction is estimated at 50-55 %. Left ventricular cavity size normal. Left ventricular wall thickness normal. Basel inferior hypokinesis Right Ventricle Mild right ventricular dilatation. Right ventricular systolic pressure within normal limits. Right Atrium Normal right atrial size. Left Atrium Normal left atrial size. Mitral Valve Structurally normal mitral valve. Trace mitral regurgitation. Aortic Valve Trileaflet aortic valve. No aortic valve stenosis or regurgitation. Tricuspid Valve Structurally normal tricuspid valve. Mild tricuspid regurgitation. Pulmonic Valve Structurally normal pulmonic valve. No pulmonic regurgitation. Pericardium No pericardial effusion. Aorta Normal size aortic root and proximal ascending aorta. CONCLUSIONS Normal LV systolic function Hypokinetic basal inferior wall Previewed by: Dr. Joseluis Mirza MD (Electronically Signed) Final Date: 19 June 2023 17:01
[2023-06-19] MEDS: ATORVASTATIN 80 MG TAB PO SCH (20:24)
[2023-06-20 05:33] LABS: African American GFR (CKD) >90 (>60 ml/min/1.73 sqM); Anion Gap 6 mmol/L; Blood Urea Nitrogen 7 mg/dL (9-20); Calcium 8.8 mg/dL (8.4-10.2); Carbon Dioxide 25 mmol/L (22-30); Chloride 107 mmol/L (98-107); Glucose 130 mg/dL (74-99); Non-African American GFR(CKD) >90 (>60 ml/min/1.73 sqM); Potassium 4.3 mmol/L (3.5-5.1); Sodium 138 mmol/L (137-145)
[2023-06-20 06:24] LABS: Glucose,Whole Blood 141 mg/dL (70-110)
--- NOTE | 2023-06-20 07:11 | P.PN ---
Subjective Progress Note Date: 06/20/23 Principal diagnosis: Acute coronary syndrome The patient is a 47-year-old gentleman who was admitted to the hospital with acute inferior ST deviation myocardial infarction and underwent an emergent heart catheterization and stenting of the RCA. The echo showed a preserved LV systolic function. June 20, 2023 The patient was seen and evaluated this morning. He is asymptomatic. He is hemodynamically stable. Vitals are stable. He continues to be on dual antiplatelet therapy along with high intensity statin along with anti-ischemic medication. As I mentioned earlier the echo showed preserved LV systolic function with no arrhythmia was noted overnight. The right radial site is soft and nontender with excellent pulses. From a cardiovascular standpoint of view, the patient can be transferred to [facility]. The examination overall showed regular rhythm with clear breathing sounds bilaterally no edema was noted. Assessment Acute inferior ST deviation myocardial infarction Preserved LV systolic function Hypertension Dyslipidemia Plan Continue current medical regimen Continue dual antiplatelet therapy along with high intensity statin Consider cardiac rehabilitation as an outpatient Follow-up with the patient The patient can be transferred to the floor Objective - Vital Signs Vital signs: Vital Signs Temp 97.8 F 06/20/23 04:00 Pulse 62 06/20/23 07:00 Resp 19 06/20/23 07:00 BP 137/82 06/20/23 07:00 Pulse Ox 95 06/20/23 07:00 FiO2 Intake & Output 06/19/23 06/20/23 06/20/23 18:59 06:59 18:59 Intake Total 844 Output Total 850 2200 0 Balance -6 -2200 0 Weight 111.13 kg 113.5 kg Intake: Intake, IV Titration 444 Amount Sodium Chloride 0.9% 1, 444 000 ml In Empty Bag 1 bag @ 1 ML/KG/HR 111.13 mls/ hr IV .Q9H [facility] Rx#: [id number] Oral 400 Output: Urine 850 2200 0 Other: Voiding Method Urinal Urinal # Voids 2 - Labs CBC & Chem 7: 06/19/23 06:26 06/20/23 04:24 Labs: Abnormal Lab Results - Last 24 Hours (Table) 06/19/23 06/19/23 06/19/23 Range/Units 06:26 06:26 07:57 BUN (9-20) mg/dL Glucose (74-99) mg/dL POC Glucose (mg/dL) 161 H (70-110) mg/dL Troponin I 0.048 H* (0.000-0.034) ng/mL Triglycerides 223.00 H (0.00-149.00) mg/dL VLDL Cholesterol, Calc 44.60 H (5.00-40.00) mg/dL HDL Cholesterol 29.90 L (40.00-60.00) mg/dL 06/19/23 06/20/23 06/20/23 Range/Units 16:31 04:24 06:23 BUN 7 L (9-20) mg/dL Glucose 130 H (74-99) mg/dL POC Glucose (mg/dL) 156 H 141 H (70-110) mg/dL Troponin I (0.000-0.034) ng/mL Triglycerides (0.00-149.00) mg/dL VLDL Cholesterol, Calc (5.00-40.00) mg/dL HDL Cholesterol (40.00-60.00) mg/dL
[2023-06-20] MEDS: ASPIRIN 81 MG PO SCH (08:12)
[2023-06-20] MEDS: PRASUGREL 10 MG TAB PO SCH (08:13)
[2023-06-20 08:20] VITALS: TEMP 98.1
[2023-06-20 11:05] LABS: Glucose,Whole Blood 104 mg/dL (70-110)
--- NOTE | 2023-06-20 13:59 | P.PN ---
Progress Note - Text Progress Note Date: 06/20/23 Chief Complaint: Chest pain This is a pleasant 47-year-old patient who follows Dr. Blanco. Longstanding smoker. Has asthma with rescue inhaler. This morning he woke up feeling unwell. 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 Started developing central chest pressure going to the back. No dizziness no lightheadedness. Break out in a sweat and clammy. Decided come to the ER. Time elapsed was about 90 minutes. ER patient found to be in ST elevation acute myocardial infarction. Taken to the cardiac Rug Designer. Patient was discovered to have a subtotally occluded distal RCA with intracoronary thrombus. Stenting of the same was carried out. Postprocedure patient laying in bed in the ICU. Patient's and mother at the bedside. May: Up in a recliner. Has been up to the bathroom. No chest pain or shortness of breath. Did tolerate a diet. 2D echo shows preserved LV function. Told to increase activity. Patient's fasting glucose this morning was 130. And HbA1c came back at 6.3. Will start the patient on metformin given his BMI 32.1. 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 Smoking a pack a day for close to 30 years. Alcohol occasionally. . Physical examination: VITAL SIGNS: 98.1, 74, 18, 137 x 93, 96% on 2 L GENERAL: In a recliner. EYES: Pupils equal. Conjunctiva shabnam l. HEENT: External appearance of nose and ears normal, oral cavity grossly normal. NECK: JVD not raised; masses not palpable. HEART: First and second heart sounds are normal; no edema. LUNGS: Respiratory rate normal; clear to auscultation. ABDOMEN: Soft, nontender, liver spleen not palpable, no masses palpable. PSYCH: Alert and oriented x3; mood and affect shabnam l. MUSCULOSKELETAL:No Clubbing/cyanosis;muscles-grossly intact INVESTIGATIONS, reviewed in the clinical context: May: Potassium 4.3 creatinine 0.87 HbA1c 6.3 June 19: White count 10.7 hemoglobin 16.6 platelets 223 potassium 4.3 creatinine 1.09 Troponin I 0.048 EKG tracing personally reviewed by me-ST elevation in inferior leads and reciprocal changes in the opposite leads Assessment and plan: -Acute inferior wall ST elevation [place] Stent placed to the RCA., By Dr. Burns Aspirin. Lipitor. Lopressor. Effient. -Chronic nicotine dependence, cigarette smoking Counseled. Nicotine patch -Diabetes mellitus type 2, borderline Fasting blood glucose 130. HbA1c 6.3. Start metformin 5 mg twice daily. Diabetic diet. Sliding scale insulin -Obesity BMI 31.5 Weight loss measures -COPD and a current smoker Albuterol as needed insulin Discussed with patient. Increase activity. Past Medical History Past Medical History: Asthma History of Any Multi-Drug Resistant Organisms: None Reported Past Surgical History: No Surgical Hx Reported Smoking Status: Current every day smoker
[2023-06-20 16:05] LABS: Glucose,Whole Blood 102 mg/dL (70-110)
[2023-06-21 05:48] LABS: Glucose,Whole Blood 132 mg/dL (70-110)
[2023-06-21] MEDS: metFORMIN 500 MG TAB PO SCH (05:52)
[2023-06-21 10:15] VITALS: RESP 18
[2023-06-21 11:23] LABS: Glucose,Whole Blood 104 mg/dL (70-110)
[2023-06-21 11:35] VITALS: BP 109/72; PULSE 71
--- NOTE | 2023-06-21 11:55 | P.PN ---
Subjective Progress Note Date: 06/21/23 Principal diagnosis: Acute coronary syndrome The patient is a 47-year-old gentleman who was admitted to the hospital with acute inferior ST deviation myocardial infarction and underwent an emergent heart catheterization and stenting of the RCA. The echo showed a preserved LV systolic function. June 20, 2023 The patient was seen and evaluated this morning. He is asymptomatic. He is hemodynamically stable. Vitals are stable. He continues to be on dual antiplatelet therapy along with high intensity statin along with anti-ischemic medication. As I mentioned earlier the echo showed preserved LV systolic function with no arrhythmia was noted overnight. The right radial site is soft and nontender with excellent pulses. From a cardiovascular standpoint of view, the patient can be transferred to [facility]. The examination overall showed regular rhythm with clear breathing sounds bilaterally no edema was noted. 06/20 Patient has been transferred out of the intensive care unit seen today on the cardiac stepdown unit. He denies have any chest pain, no shortness of breath no lightheadedness or dizziness. He has been ambulatory without symptoms. Blood pressure 109/72, heart rate 71, pulse ox 95% on room air. Assessment Acute inferior ST deviation myocardial infarction Preserved LV systolic function Hypertension Dyslipidemia Plan Continue current medical regimen Continue dual antiplatelet therapy along with high intensity statin Patient is cleared from cardiology for discharge. New prescriptions have been sent to his pharmacy. Patient follow-up with Dr. Burns in 1 week Nurse practitioner note has been reviewed, I agree with documented findings and plan of care. Patient was seen and examined. Objective - Vital Signs Vital signs: Vital Signs Temp 98.1 F 06/20/23 16:00 Pulse 71 06/21/23 03:21 Resp 16 06/21/23 03:21 BP 122/72 06/21/23 03:21 Pulse Ox 94 L 06/21/23 03:21 FiO2 Intake & Output 06/20/23 06/21/23 06/21/23 18:59 06:59 18:59 Intake Total 720 240 Output Total 5 1 Balance 715 -1 240 Intake: Oral 720 240 Output: Urine 5 1 Other: Voiding Method Toilet Toilet - Labs CBC & Chem 7: 06/19/23 06:26 06/20/23 04:24 Labs: Abnormal Lab Results - Last 24 Hours (Table) 06/21/23 Range/Units 05:47 POC Glucose (mg/dL) 132 H (70-110) mg/dL
--- NOTE | 2023-06-21 21:52 | P.DS ---
Providers Date of admission: 06/19/23 06:25 Expected date of discharge: 06/21/23 Attending physician: Flo Bourgeois Consults: 06/19/23 06:25 Consult Physician Stat Consulting Provider: Reed Guzman Consult Reason/Comments: STEMI Do you want consulting provider notified?: Already Contacted 06/19/23 07:50 Consult Physician Routine Consulting Provider: [facility] Consult Reason/Comments: Post Interventional Patient Do you want consulting provider notified?: Already Contacted Primary care physician: [facility] Hospital Course: Chief Complaint: Chest pain This is a pleasant 47-year-old patient who follows Dr. Blanco. Longstanding smoker. Has asthma with rescue inhaler. This morning he woke up feeling unwell. 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 Started developing central chest pressure going to the back. No dizziness no lightheadedness. Break out in a sweat and clammy. Decided come to the ER. Time elapsed was about 90 minutes. ER patient found to be in ST elevation acute myocardial infarction. Taken to the cardiac Airport Location Manager. Patient was discovered to have a subtotally occluded distal RCA with intracoronary thrombus. Stenting of the same was carried out. Postprocedure patient laying in bed in the ICU. Patient's and mother at the bedside. May: Up in a recliner. Has been up to the bathroom. No chest pain or shortness of breath. Did tolerate a diet. 2D echo shows preserved LV function. Told to increase activity. Patient's fasting glucose this morning was 130. And HbA1c came back at 6.3. Will start the patient on metformin given his BMI 32.1. June 20: Care was discussed at length with the patient and family at the bedside. Glucometer given. Discussed about smoking again.. Questions answered. Patient to keep a log of his Accu-Chek. 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 Smoking a pack a day for close to 30 years. Alcohol occasionally. . Physical examination: VITAL SIGNS: 98.1, 71, 18, 109 x 72, 95% room air GENERAL: Up in a chair EYES: Pupils equal. Conjunctiva shabnma l. HEENT: External appearance of nose and ears normal, oral cavity grossly normal. NECK: JVD not raised; masses not palpable. HEART: First and second heart sounds are normal; no edema. LUNGS: Respiratory rate normal; clear to auscultation. ABDOMEN: Soft, nontender, liver spleen not palpable, no masses palpable. PSYCH: Alert and oriented x3; mood and affect shabnam l. MUSCULOSKELETAL:No Clubbing/cyanosis;muscles-grossly intact INVESTIGATIONS, reviewed in the clinical context: May: Potassium 4.3 creatinine 0.87 HbA1c 6.3 June 19: White count 10.7 hemoglobin 16.6 platelets 223 potassium 4.3 creatinine 1.09 Troponin I 0.048 EKG tracing personally reviewed by me-ST elevation in inferior leads and reciprocal changes in the opposite leads Assessment and plan: -Acute inferior wall ST elevation [place] Stent placed to the RCA., By Dr. Burns Aspirin. Lipitor. Lopressor. Effient. -Chronic nicotine dependence, cigarette smoking Counseled. Nicotine patch -Diabetes mellitus type 2, borderline Fasting blood glucose 130. HbA1c 6.3. Added metformin 500 mg twice daily. Diabetic diet. Sliding scale insulin Patient to keep a log of Accu-Chek -Obesity BMI 31.5 Weight loss measures -COPD and a current smoker Albuterol as needed insulin Disposition: Home Past Medical History Past Medical History: Asthma History of Any Multi-Drug Resistant Organisms: None Reported Past Surgical History: No Surgical Hx Reported Smoking Status: Current every day smoker Additional CC's: Rubin Blanco Plan - Discharge Summary New Discharge Prescriptions: New Atorvastatin [Lipitor] 80 mg PO HS #90 tab Metoprolol Tartrate [Lopressor] 25 mg PO BID #180 tab Nitroglycerin Sl Tabs [Nitrostat] 0.4 mg SUBLINGUAL Q5M PRN #25 tab PRN Reason: Chest Pain Nicotine 21Mg/24Hr Patch [Habitrol] 1 patch TRANSDERM DAILY #30 patch metFORMIN HCL [Glucophage] 500 mg PO BID-W/MEALS #60 tab Spironolactone [Aldactone] 25 mg PO DAILY #90 tab Aspirin 81 mg PO DAILY tab Prasugrel [Effient] 10 mg PO DAILY #90 tab Discharge Medication List Aspirin 81 mg PO DAILY tab 06/21/23 [Rx] Atorvastatin [Lipitor] 80 mg PO HS #90 tab 06/21/23 [Rx] Metoprolol Tartrate [Lopressor] 25 mg PO BID #180 tab 06/21/23 [Rx] Nicotine 21Mg/24Hr Patch [Habitrol] 1 patch TRANSDERM DAILY #30 patch 06/21/23 [Rx] Nitroglycerin Sl Tabs [Nitrostat] 0.4 mg SUBLINGUAL Q5M PRN #25 tab 06/21/23 [Rx] Prasugrel [Effient] 10 mg PO DAILY #90 tab 06/21/23 [Rx] Spironolactone [Aldactone] 25 mg PO DAILY #90 tab 06/21/23 [Rx] metFORMIN HCL [Glucophage] 500 mg PO BID-W/MEALS #60 tab 06/21/23 [Rx] Follow up Appointment(s)/Referral(s): Van Burns MD [STAFF PHYSICIAN] - 1 Week (office will call with appointment date and time) Rubin Blanco DO [Primary Care Provider] - 1-2 days (office will call with appointment date) Patient Instructions/Handouts: *Surgery [facility] - After Heart Catheterization - Business Process Expert Instructions Discharge Disposition: HOME SELF-CARE
== END 2023-06-21 15:16 | disposition home or self-care (01) | DRG 322 ==
LOC: EC 06:07 → 2SICU 06:25 → 3SCARD 06-20 21:23
PROVIDERS: ADMIT Hospitalist; ATTEND Hospitalist
PROC: 4A023N7 Measurement of Cardiac Sampling and Pressure, Left Heart, Percutaneous Approach (ICD-10-PCS; 2023-06-19)
PROC: B2111ZZ Fluoroscopy of Multiple Coronary Arteries using Low Osmolar Contrast (ICD-10-PCS; 2023-06-19)
PROC: 027034Z Dilation of Coronary Artery, One Artery with Drug-eluting Intraluminal Device, Percutaneous Approach (ICD-10-PCS; principal; 2023-06-19 06:27)
PROC: 02C03ZZ Extirpation of Matter from Coronary Artery, One Artery, Percutaneous Approach (ICD-10-PCS; 2023-06-19 06:27)
PROC: 4A033BC Measurement of Arterial Pressure, Coronary, Percutaneous Approach (ICD-10-PCS; 2023-06-19 06:27)
PROC: B240ZZ3 Ultrasonography of Single Coronary Artery, Intravascular (ICD-10-PCS; 2023-06-19 06:27)
DX: I21.19 ST elevation (STEMI) myocardial infarction involving other coronary artery of inferior wall (principal); E11.65 Type 2 diabetes mellitus with hyperglycemia; I10 Essential (primary) hypertension; E66.9 Obesity, unspecified; Z68.32 Body mass index [BMI] 32.0-32.9, adult; I25.119 Atherosclerotic heart disease of native coronary artery with unspecified angina pectoris; E78.5 Hyperlipidemia, unspecified; J44.89 Other specified chronic obstructive pulmonary disease; F17.210 Nicotine dependence, cigarettes, uncomplicated; Z71.6 Tobacco abuse counseling; Z71.3 Dietary counseling and surveillance
CPT/HCPCS: 71045; 80048; 80053; 80061; 83036; 83735; 84484; 85025; 85610; 85730; 92973; 92978; 93005; 93306; 93458; 96374; 96375; 99291

== ENCOUNTER → 2023-08-21 | Outpatient (CLI) | payer OTHER, BC ==
[2023-08-21 15:45] LABS: HCT 44.8 % (39.6-50.0); HGB 14.8 g/dL (13.0-17.0); MCH 29.3 pg (27.0-32.0); MCV 88.7 FL (80.0-97.0); Mean Platelet Volume 11.1 FL (9.5-12.2); NRBC Per 100 WBC 0 X 10*3/uL (0.00-0.01); Platelet Count 194 X 10*3/uL (140-440); RBC 5.05 X 10*6/uL (4.40-5.60); RDW 12.7 % (11.5-14.5); WBC 8.92 X 10*3/uL (4.50-10.00)
[2023-08-21 15:52] LABS: ALT 45 U/L (10-49); AST 30 U/L (14-35); Albumin 4.6 g/dL (3.8-4.9); Albumin/Globulin Ratio 2.42 Ratio (1.60-3.17); Alkaline Phosphatase 97 U/L (41-126); BUN/Creat Ratio 19.82 Ratio (12.00-20.00); Blood Urea Nitrogen 21.8 mg/dL (9.0-27.0); Calcium 9.4 mg/dL (8.7-10.3); Carbon Dioxide 29.2 mmol/L (21.6-31.8); Chloride 106 mmol/L (96-109); Chol/HDL Ratio 2.65 Ratio; Globulin 1.9 g/dL (1.6-3.3); Glucose 115 mg/dL (70-110); LDL Cholesterol,Calculated 37.3 mg/dL (0.0-131.0); Potassium 5.1 mmol/L (3.5-5.5); Sodium 143 mmol/L (135-145); Total Bilirubin 0.7 mg/dL (0.3-1.2); Total Protein 6.5 g/dL (6.2-8.2); VLDL Calculation 16.22 mg/dL (5.00-40.00)
== END | disposition home or self-care (01) ==
LOC: LABWHC1 08:49
PROVIDERS: ATTEND Internal Medicine Interventional Cardiology
DX: I10 Essential (primary) hypertension (principal); E78.2 Mixed hyperlipidemia
CPT/HCPCS: 36415; 80053; 80061; 85027

== ENCOUNTER → 2024-01-03 | Outpatient (CLI) | payer OTHER, BC ==
[2024-01-03 10:37] LABS: BUN/Creat Ratio 14.92 Ratio (12.00-20.00); Blood Urea Nitrogen 17.9 mg/dL (9.0-27.0); Chloride 99 mmol/L (96-109); Chol/HDL Ratio 2.47 Ratio; Glucose 118 mg/dL (70-110); LDL Cholesterol,Calculated 36.4 mg/dL (0.0-131.0); Potassium 4.9 mmol/L (3.5-5.5); Sodium 137 mmol/L (135-145)
[2024-01-03 10:38] LABS: ALT 35 U/L (10-49); AST 36 U/L (14-35); Albumin 4.6 g/dL (3.8-4.9); Albumin/Globulin Ratio 2.19 Ratio (1.60-3.17); Alkaline Phosphatase 93 U/L (41-126); Calcium 9.9 mg/dL (8.7-10.3); Globulin 2.1 g/dL (1.6-3.3); Prostate Specific Antigen 0.98 ng/mL (0.000-2.500); Total Bilirubin 0.8 mg/dL (0.3-1.2); Total Protein 6.7 g/dL (6.2-8.2)
[2024-01-03 12:59] LABS: Bacteria,Urine None Seen (None Seen)
[2024-01-03 13:27] LABS: Appearance,Urine Turbid (Clear); Bilirubin,Urine Negative (Negative); Blood,Urine Negative (Negative); Color,Urine Dark Yellow (Yellow); Ketones,Urine Trace (Negative); Nitrite,Urine Negative (Negative); Specific Gravity,Urine 1.033 (1.001-1.030); Urobilinogen,Urine 0.2
== END | disposition home or self-care (01) ==
LOC: LABWHC1 07:01
PROVIDERS: ATTEND Family Medicine
DX: Z00.00 Encounter for general adult medical examination without abnormal findings (principal); I10 Essential (primary) hypertension; E78.2 Mixed hyperlipidemia
CPT/HCPCS: 36415; 80053; 80061; 81001; 84153

== ENCOUNTER → 2024-07-15 | Outpatient (CLI) | payer OTHER, BC ==
[2024-07-15 15:25] LABS: ALT 41 U/L (10-49); AST 41 U/L (14-35); Albumin 4.6 g/dL (3.8-4.9); Albumin/Globulin Ratio 2.09 Ratio (1.60-3.17); Alkaline Phosphatase 86 U/L (41-126); BUN/Creat Ratio 16.91 Ratio (12.00-20.00); Blood Urea Nitrogen 18.6 mg/dL (9.0-27.0); Calcium 9.5 mg/dL (8.7-10.3); Carbon Dioxide 28.7 mmol/L (21.6-31.8); Chloride 104 mmol/L (96-109); Chol/HDL Ratio 2.62 Ratio; Globulin 2.2 g/dL (1.6-3.3); Glucose 120 mg/dL (70-110); LDL Cholesterol,Calculated 45.4 mg/dL (0.0-131.0); Potassium 4.8 mmol/L (3.5-5.5); Sodium 140 mmol/L (135-145); Total Bilirubin 0.9 mg/dL (0.3-1.2); Total Protein 6.8 g/dL (6.2-8.2)
== END | disposition home or self-care (01) ==
LOC: LABWHC1 10:23
PROVIDERS: ATTEND Internal Medicine Interventional Cardiology
DX: E78.2 Mixed hyperlipidemia (principal)
CPT/HCPCS: 36415; 80053; 80061